=== PATIENT | female | born 1960 | race Caucasian/White ===

== ENCOUNTER 2016-09-21 12:49 | Emergency (ER) | payer OTHER ==
[~2016-09-21] VITALS: Ht 165.1 cm; Wt 77.1 kg
[2016-09-21] MEDS ORDERED: ZESTRIL20 MG PO (13:25)
[2016-09-21] MEDS ORDERED: GLUCOPHAGE500 MG PO (13:25)
[2016-09-21 13:26] VITALS: BP 154/72
--- NOTE | 2016-09-21 13:26 | NUR ---
PT AMBULATED TO BED 7 AT THIS TIME.
--- NOTE | 2016-09-21 13:30 | NUR ---
56/F BIB TO ED C/O RIGHT FOOT/ANKLE PAIN X 3 DAYS, PT. STATES A TREE BRANCH FELL ON FOOT ON SUNDAY. HX DIABETES AND HTN. STS PAIN LOCALIZED ONLY TO THE 1ST TOE. FOOT IS SWOLLEN, SKIN TAUT. CMS INTACT. XR NOTIFED FOR SCAN.
--- NOTE | 2016-09-21 14:45 | NUR ---
SPLINT APPLIED AT BEDSIDE.
[2016-09-21 15:24] VITALS: BP 150/78
--- NOTE | 2016-09-21 15:25 | NUR ---
Patient discharged with v/s stable. Written and verbal after care instructions given and explained. Patient alert, oriented and verbalized understanding of instructions. Ambulatory with CRUTCHES. All questions addressed prior to discharge. ID band removed. Patient advised to follow up with PMD. Rx of NORCO 5-325 AND MOTRIN given. Patient educated on indication of medication including possible reaction and side effects. Opportunity to ask questions provided and answered.
== END 2016-09-21 15:25 | disposition home or self-care (01) ==
LOC: MED 12:53
DX: S92.311A Displaced fracture of first metatarsal bone, right foot, initial encounter for closed fracture (principal); E11.9 Type 2 diabetes mellitus without complications; I10 Essential (primary) hypertension; X58.XXXA Exposure to other specified factors, initial encounter; Y93.89 Activity, other specified; Y92.89 Other specified places as the place of occurrence of the external cause; Y99.8 Other external cause status

== ENCOUNTER 2021-07-23 05:18 | Inpatient (IN) | payer OTHER, SELFPAY ==
[~2021-07-23] VITALS: Ht 165.1 cm; Wt 64.0 kg
[~2021-07-23 05:18] MED LIST: LISI-487 PO; METF500T PO
[2021-07-23 06:04] VITALS: BP 167/74
[2021-07-23 08:02] LABS: ANION GAP 12.7 (8-16); CARBON DIOXIDE 30.8 mmol/L (21-32); CREATININE 3.9 mg/dL (0.6-1.3); POTASSIUM 4.5 mmol/L (3.5-5.1)
[2021-07-23 08:06] LABS: BASOPHILS # (AUTO) 0.1 K/uL (0.00-0.22); EOSINOPHILS % (AUTO) 0.7 % (0.0-4.0); HEMATOCRIT 28.4 % (36-48); HEMOGLOBIN 9.8 g/dL (12.0-16.0); LYMPHOCYTES # (AUTO) 0.9 K/uL (2.5-16.5); LYMPHOCYTES % (AUTO) 15.2 % (20.5-51.1); MEAN CORPUSCULAR HEMOGLOBIN 33 pg (27-31); MEAN CORPUSCULAR HGB CONC 35 g/dL (33-37); MEAN CORPUSCULAR VOLUME 96.5 fL (80-94); MONOCYTES # (AUTO) 0.4 K/uL (0.8-1.0); MONOCYTES % (AUTO) 6.3 % (1.7-9.3); NEUTROPHILS # (AUTO) 4.5 K/uL (1.8-7.7); NEUTROPHILS % (AUTO) 76.8 % (42.2-75.2); PLATELET COUNT (AUTO) 315 K/uL (140-450); RED BLOOD CELL COUNT(AUTO) 2.94 MIL/uL (4.20-5.40); RED CELL DISTRIBUTION WIDTH 13.5 % (11.6-13.7); WHITE BLOOD COUNT (AUTO) 5.9 K/uL (4.8-10.8)
[2021-07-23] MEDS ORDERED: CLON0.2T16 PO (10:26)
[2021-07-23] MEDS ORDERED: LOSA100T1 PO (10:26)
[2021-07-23] MEDS ORDERED: HYDROcodone/APAP 5/325 MG 1 TAB TAB PO STA (10:56)
[2021-07-23] MEDS ORDERED: ONDANSETRON 4 MG ODT PO ONE (11:10)
[2021-07-23] MEDS ORDERED: ZOLPIDEM 5 MG TAB PO PRN (11:25)
[2021-07-23] MEDS ORDERED: ONDANSETRON 4 MG/2 ML VIAL IM/IVP PRN (11:25)
[2021-07-23] MEDS ORDERED: POTASSIUM CHLORIDE 10 MEQ TABER PO PRN (11:25)
[2021-07-23] MEDS ORDERED: DOCUSATE SODIUM 100 MG GELCAP PO PRN (11:25)
[2021-07-23] MEDS ORDERED: guaiFENesin DM 200/20 MG-10 ML 10 ML UDC PO PRN (11:25)
[2021-07-23] MEDS ORDERED: ACETAMINOPHEN 325 MG TAB PO PRN (11:25)
[2021-07-23] MEDS: NACL 0.9% 1,000 ML IV SCH (11:51)
[2021-07-23 13:52] LABS: CHOL/HDL RATIO 2.9 (1-4.5); FREE T4 (FREE THYROXINE) 1.25 ng/dL (0.76-1.46); MAGNESIUM 2.4 mg/dL (1.8-2.4); PROTHROMBIN TIME 9.9 secs (10.8-13.4); THYROID STIMULATING HORMONE 0.75 uIU/mL (0.34-3.74)
[2021-07-23 14:07] LABS: PHOSPHORUS 1.1 mg/dL (2.5-4.9)
[2021-07-23 14:47] LABS: APPEARANCE,URINE CLEAR (CLEAR); BILIRUBIN,URINE NEGATIVE (NEGATIVE); BLOOD, URINE NEGATIVE (NEGATIVE); COLOR,URINE YELLOW (YELLOW); LEUKOCYTE ESTERASE ,URINE NEGATIVE (NEGATIVE); NITRITE, URINE NEGATIVE (NEGATIVE); UGLUCOSE NEGATIVE (NEGATIVE)
[2021-07-23] MEDS ORDERED: SODIUM PHOS / POTASSIUM PHOS 1 PKT PDR PO SCH (15:00)
[2021-07-23 15:06] LABS: BARBITURATE, URINE NEGATIVE ng/ml (NEG <=200); BENZODIAZEPINE, URINE NEGATIVE ng/mL (NEG <=200); CANNABINOID, URINE NEGATIVE ng/mL (NEG <=50); COCAINE, URINE NEGATIVE ng/mL (NEG <=300); OPIATE, URINE NEGATIVE ng/mL (NEG <=2000); PHENCYCLIDINE SCREEN,URINE NEGATIVE ng/mL (NEG <=25)
[2021-07-23] MEDS: HYDROcodone/APAP 7.5/325 MG 1 TAB PO PRN (21:30)
[2021-07-24] MEDS: NACL 0.9% 1,000 ML IV SCH ×2 (04:29→21:10)
[2021-07-24] MEDS: HYDROcodone/APAP 7.5/325 MG 1 TAB PO PRN (08:14)
[2021-07-24] MEDS: PANTOPRAZOLE 40 MG TABEC PO SCH (08:15)
[2021-07-24 09:05] LABS: ANION GAP 14.5 (8-16); BASOPHILS # (AUTO) 0.1 K/uL (0.00-0.22); BASOPHILS % (AUTO) 0.9 % (0.0-2.0); CARBON DIOXIDE 27.8 mmol/L (21-32); EOSINOPHILS # (AUTO) 0.2 K/uL (0-0.4); EOSINOPHILS % (AUTO) 2.3 % (0.0-4.0); HEMATOCRIT 28.8 % (36-48); HEMOGLOBIN 10.1 g/dL (12.0-16.0); LYMPHOCYTES # (AUTO) 1.8 K/uL (2.5-16.5); LYMPHOCYTES % (AUTO) 24.8 % (20.5-51.1); MEAN CORPUSCULAR HEMOGLOBIN 34 pg (27-31); MEAN CORPUSCULAR HGB CONC 35 g/dL (33-37); MEAN CORPUSCULAR VOLUME 95.8 fL (80-94); MONOCYTES # (AUTO) 0.6 K/uL (0.8-1.0); MONOCYTES % (AUTO) 8.5 % (1.7-9.3); NEUTROPHILS # (AUTO) 4.5 K/uL (1.8-7.7); NEUTROPHILS % (AUTO) 63.5 % (42.2-75.2); PLATELET COUNT (AUTO) 352 K/uL (140-450); POTASSIUM 4.3 mmol/L (3.5-5.1); RED CELL DISTRIBUTION WIDTH 13.5 % (11.6-13.7); WHITE BLOOD COUNT (AUTO) 7.1 K/uL (4.8-10.8)
[2021-07-24 09:06] LABS: T4 (THYROXINE) 11.7 ug/dL (4.5-12.0)
[2021-07-24 09:41] LABS: CREATININE 4.6 mg/dL (0.6-1.3)
[2021-07-24] MEDS ORDERED: NON-FORMULARY ITEM (Clonidine HCl (Clonidine) 0.1 MG) PO SCH (16:05)
[2021-07-24] MEDS ORDERED: LOSARTAN 50 MG TAB PO SCH (16:05)
[2021-07-24] MEDS ORDERED: metFORMIN 500 MG TAB PO SCH (16:05)
[2021-07-24] MEDS ORDERED: CLONIDINE HYDROCHLORIDE 0.1 MG TAB PO SCH (16:24)
[2021-07-24] MEDS: INSULIN LISPRO SLIDING SCALE 100 UNITS/ML VIAL SUBQ PRN (17:42)
[2021-07-24] MEDS: BLOOD GLUCOSE MONITORING 1 DEV DEV FS SCH (21:11)
[2021-07-24] MEDS: CLONIDINE HYDROCHLORIDE 0.1 MG TAB PO SCH (21:13)
[2021-07-25 07:17] LABS: BASOPHILS # (AUTO) 0.1 K/uL (0.00-0.22); BASOPHILS % (AUTO) 1.4 % (0.0-2.0); EOSINOPHILS # (AUTO) 0.2 K/uL (0-0.4); EOSINOPHILS % (AUTO) 3.1 % (0.0-4.0); HEMATOCRIT 27.8 % (36-48); HEMOGLOBIN 9.7 g/dL (12.0-16.0); LYMPHOCYTES # (AUTO) 1.5 K/uL (2.5-16.5); LYMPHOCYTES % (AUTO) 24.1 % (20.5-51.1); MEAN CORPUSCULAR HEMOGLOBIN 34 pg (27-31); MEAN CORPUSCULAR HGB CONC 35 g/dL (33-37); MEAN CORPUSCULAR VOLUME 96.5 fL (80-94); MONOCYTES # (AUTO) 0.5 K/uL (0.8-1.0); MONOCYTES % (AUTO) 8.6 % (1.7-9.3); NEUTROPHILS % (AUTO) 62.8 % (42.2-75.2); PLATELET COUNT (AUTO) 341 K/uL (140-450); RED BLOOD CELL COUNT(AUTO) 2.88 MIL/uL (4.20-5.40); RED CELL DISTRIBUTION WIDTH 13.7 % (11.6-13.7); WHITE BLOOD COUNT (AUTO) 6.4 K/uL (4.8-10.8)
[2021-07-25] MEDS: BLOOD GLUCOSE MONITORING 1 DEV DEV FS SCH ×4 (07:30→21:31)
[2021-07-25 07:46] LABS: ANION GAP 12.6 (8-16); CARBON DIOXIDE 30.3 mmol/L (21-32); POTASSIUM 4.9 mmol/L (3.5-5.1)
[2021-07-25 08:03] LABS: CREATININE 5.4 mg/dL (0.6-1.3)
[2021-07-25] MEDS: CLONIDINE HYDROCHLORIDE 0.1 MG TAB PO SCH ×2 (09:27→20:17)
[2021-07-25] MEDS: PANTOPRAZOLE 40 MG TABEC PO SCH (09:27)
[2021-07-25] MEDS: HYDROcodone/APAP 7.5/325 MG 1 TAB PO PRN ×2 (09:28→20:18)
[2021-07-25] MEDS: LOSARTAN 50 MG TAB PO SCH ×3 (09:28→20:18)
[2021-07-25 10:00] VITALS: BP 190/91
[2021-07-25] MEDS: INSULIN LISPRO SLIDING SCALE 100 UNITS/ML VIAL SUBQ PRN ×2 (11:53→21:31)
[2021-07-25] MEDS: NACL 0.9% 1,000 ML IV SCH (11:53)
[2021-07-25 16:00] VITALS: BP 160/87
[2021-07-25 20:00] VITALS: BP 195/94
[2021-07-26] VITALS: BP 145/78
[2021-07-26 04:00] VITALS: BP 140/80
[2021-07-26 06:21] LABS: BASOPHILS # (AUTO) 0.1 K/uL (0.00-0.22); BASOPHILS % (AUTO) 1.2 % (0.0-2.0); EOSINOPHILS # (AUTO) 0.2 K/uL (0-0.4); EOSINOPHILS % (AUTO) 3.8 % (0.0-4.0); HEMATOCRIT 26.7 % (36-48); HEMOGLOBIN 9.2 g/dL (12.0-16.0); LYMPHOCYTES # (AUTO) 1.3 K/uL (2.5-16.5); LYMPHOCYTES % (AUTO) 23.1 % (20.5-51.1); MEAN CORPUSCULAR HEMOGLOBIN 33 pg (27-31); MEAN CORPUSCULAR HGB CONC 35 g/dL (33-37); MEAN CORPUSCULAR VOLUME 96.3 fL (80-94); MONOCYTES # (AUTO) 0.6 K/uL (0.8-1.0); MONOCYTES % (AUTO) 11.4 % (1.7-9.3); NEUTROPHILS # (AUTO) 3.4 K/uL (1.8-7.7); NEUTROPHILS % (AUTO) 60.5 % (42.2-75.2); PLATELET COUNT (AUTO) 315 K/uL (140-450); RED BLOOD CELL COUNT(AUTO) 2.77 MIL/uL (4.20-5.40); RED CELL DISTRIBUTION WIDTH 13.3 % (11.6-13.7); WHITE BLOOD COUNT (AUTO) 5.6 K/uL (4.8-10.8)
[2021-07-26 07:33] LABS: ANION GAP 13.6 (8-16); CARBON DIOXIDE 26.4 mmol/L (21-32)
[2021-07-26] MEDS: BLOOD GLUCOSE MONITORING 1 DEV DEV FS SCH ×2 (07:33→10:40)
[2021-07-26 07:34] LABS: CREATININE 4.4 mg/dL (0.6-1.3)
[2021-07-26 08:00] VITALS: BP 186/73
[2021-07-26] MEDS: PANTOPRAZOLE 40 MG TABEC PO SCH (08:40)
[2021-07-26] MEDS: LOSARTAN 50 MG TAB PO SCH (08:40)
[2021-07-26] MEDS: CLONIDINE HYDROCHLORIDE 0.1 MG TAB PO SCH (08:41)
[2021-07-26] MEDS ORDERED: NIFEdipine 30 MG TABER PO SCH (09:00)
[2021-07-26] MEDS: INSULIN LISPRO SLIDING SCALE 100 UNITS/ML VIAL SUBQ PRN (10:35)
[2021-07-26 12:00] VITALS: BP 142/64
[2021-07-26] MEDS ORDERED: CLONIDINE HYDROCHLORIDE 0.1 MG TAB PO SCH (13:00)
[2021-07-26] MEDS ORDERED: NIFE30TA36 PO (13:05)
[2021-07-26] MEDS ORDERED: CLON0.1T16 PO (13:05)
[2021-07-26 13:23] VITALS: BP 142/64
[2021-07-26 14:20] VITALS: BP 130/77
== END 2021-07-26 15:46 | disposition home health service (06) | DRG 280 ==
LOC: MED 05:18 → MTU 10:22
PROVIDERS: ADMIT Family Medicine; ATTEND Family Medicine
PROC: 5A1D70Z Performance of Urinary Filtration, Intermittent, Less than 6 Hours Per Day (ICD-10-PCS; principal; 2021-07-24)
PROC: 5A1D70Z Performance of Urinary Filtration, Intermittent, Less than 6 Hours Per Day (ICD-10-PCS; 2021-07-26)
DX: I13.2 Hypertensive heart and chronic kidney disease with heart failure and with stage 5 chronic kidney disease, or end stage renal disease (principal); J96.01 Acute respiratory failure with hypoxia; I21.A1 Myocardial infarction type 2; N17.0 Acute kidney failure with tubular necrosis; N18.6 End stage renal disease; I50.33 Acute on chronic diastolic (congestive) heart failure; I16.1 Hypertensive emergency; Z20.822 Contact with and (suspected) exposure to COVID-19; D63.8 Anemia in other chronic diseases classified elsewhere; E87.70 Fluid overload, unspecified; E11.22 Type 2 diabetes mellitus with diabetic chronic kidney disease; I27.20 Pulmonary hypertension, unspecified; Z99.2 Dependence on renal dialysis; Z90.49 Acquired absence of other specified parts of digestive tract
CPT/HCPCS: 36415; 71045; 80048; 80305; 81003; 82150; 82948; 83036; 83690; 83735; 83880; 84100; 84436; 84439; 84443; 84479; 84484; 85025; 85610; 85730; 87081; 93005; 97116; 97163-GP; 97530; 99285; J2405; Q0162

== ENCOUNTER 2022-07-17 12:51 | Emergency (ER) | payer OTHER ==
[~2022-07-17] VITALS: Ht 157.5 cm; Wt 70.3 kg
[~2022-07-17 12:51] MED LIST changes: +CLON0.1T16 PO; -LISI-487 PO; -METF500T PO; +NIFE30TA36 PO
[2022-07-17 12:56] VITALS: BP 182/92
[2022-07-17] MEDS ORDERED: KETOROLAC 15 MG/ML VIAL IM ONE (13:15)
[2022-07-17] MEDS ORDERED: CYCLOBENZAPRINE 10 MG TAB PO ONE (13:15)
[2022-07-17] MEDS ORDERED: LIDOCAINE 5% 1 EA PATCH TP ONE (13:15)
[2022-07-17] MEDS ORDERED: ACETAMINOPHEN 325 MG TAB PO ONE (13:15)
--- NOTE | 2022-07-17 13:20 | NUR ---
PATIENT PRESENTS TO ED WITH BACKPAIN . PT DEBIES TRAUMA . DENIES N/V/D; SKIN IS PINK/WARM/DRY; AAOX4 WITH EVEN AND STEADY GAIT; LUNGS CLEAR BL; HR EVEN AND REGULAR; PT DENIES ANY FEVER, CP, SOB, OR COUGH AT THIS TIME; PATIENT STATES PAIN OF 7/10 AT THIS TIME; VSS; PATIENT POSITIONED FOR COMFORT; HOB ELEVATED; BEDRAILS UP X2; BED DOWN. ER MD MADE AWARE OF PT STATUS.
[2022-07-17] MEDS ORDERED: CYCL-711 PO (14:13)
[2022-07-17] MEDS ORDERED: ACET-10509 PO (14:13)
[2022-07-17] MEDS ORDERED: LID5T TP (14:13)
[2022-07-17 14:30] VITALS: BP 155/78
--- NOTE | 2022-07-17 14:31 | NUR ---
Patient discharged with v/s stable. Written and verbal after care instructions given and explained. Patient verbalized understanding. Ambulatory with steady gait. All questions addressed prior to discharge. Advised to follow up with PMD.
== END 2022-07-17 14:30 | disposition home or self-care (01) ==
LOC: MED 12:51
DX: M54.50 Low back pain, unspecified (principal); G89.29 Other chronic pain; J45.909 Unspecified asthma, uncomplicated; E11.22 Type 2 diabetes mellitus with diabetic chronic kidney disease; I12.0 Hypertensive chronic kidney disease with stage 5 chronic kidney disease or end stage renal disease; N18.6 End stage renal disease; Z99.2 Dependence on renal dialysis; Z79.899 Other long term (current) drug therapy; Z98.890 Other specified postprocedural states
CPT/HCPCS: 72110; 96372; 99283; J1885

== ENCOUNTER 2022-07-18 21:00 | Emergency (ER) | payer OTHER ==
[~2022-07-18] VITALS: Ht 165.1 cm; Wt 61.2 kg
[~2022-07-18 21:00] MED LIST changes: +ACET-10509 PO; +CYCL-711 PO; +LID5T TP
[2022-07-18 21:15] VITALS: BP 120/61
--- NOTE | 2022-07-18 21:18 | NUR ---
TO LOBBY A/W BED AMBULATORY WITH WALKER
[2022-07-18] MEDS ORDERED: methocarbamoL 500 MG TAB PO ONE (23:00)
[2022-07-18] MEDS ORDERED: LIDOCAINE 5% 1 EA PATCH TP ONE (23:00)
--- NOTE | 2022-07-18 23:04 | NUR ---
PT TAKEN TO CT
--- NOTE | 2022-07-18 23:04 | NUR ---
Alfonzo neal in [facility] - 07/18/22 at 2304 by ANILA PT TO US
--- NOTE | 2022-07-18 23:12 | NUR ---
PT RETURN FROM CT TO ER BED 11
[2022-07-18 23:28] LABS: BASOPHILS % (AUTO) 0.9 % (0.0-2.0); EOSINOPHILS # (AUTO) 0.1 K/uL (0-0.4); EOSINOPHILS % (AUTO) 0.9 % (0.0-4.0); HEMATOCRIT 30.7 % (36-48); HEMOGLOBIN 10.7 g/dL (12.0-16.0); LYMPHOCYTES # (AUTO) 1.8 K/uL (2.5-16.5); LYMPHOCYTES % (AUTO) 31.8 % (20.5-51.1); MEAN CORPUSCULAR HEMOGLOBIN 34 pg (27-31); MEAN CORPUSCULAR HGB CONC 35 g/dL (33-37); MEAN CORPUSCULAR VOLUME 98.1 fL (80-94); MONOCYTES # (AUTO) 0.7 K/uL (0.8-1.0); NEUTROPHILS # (AUTO) 3.1 K/uL (1.8-7.7); NEUTROPHILS % (AUTO) 54.4 % (42.2-75.2); PLATELET COUNT (AUTO) 210 K/uL (140-450); RED BLOOD CELL COUNT(AUTO) 3.13 MIL/uL (4.20-5.40); RED CELL DISTRIBUTION WIDTH 12.5 % (11.6-13.7); WHITE BLOOD COUNT (AUTO) 5.7 K/uL (4.8-10.8)
[2022-07-18 23:58] LABS: ALBUMIN 3.6 g/dL (3.4-5.0); ANION GAP 11.7 (8-16); CARBON DIOXIDE 35.7 mmol/L (21-32); CREATININE 3.8 mg/dL (0.6-1.3); POTASSIUM 3.4 mmol/L (3.5-5.1); TOTAL BILIRUBIN 0.5 mg/dL (0.0-1.0)
[2022-07-19 01:11] LABS: APPEARANCE,URINE SL CLOUDY (CLEAR); BILIRUBIN,URINE NEGATIVE (NEGATIVE); BLOOD, URINE NEGATIVE (NEGATIVE); COLOR,URINE YELLOW (YELLOW); LEUKOCYTE ESTERASE ,URINE 1+ (NEGATIVE); NITRITE, URINE NEGATIVE (NEGATIVE); PH,URINE 7.5 (5.0-9.0); UGLUCOSE NEGATIVE (NEGATIVE)
--- NOTE | 2022-07-19 01:11 | NUR ---
URINE COLLECTED AND SENT TO LAB
[2022-07-19 01:17] LABS: RBC,URINE 0-5 /HPF (0-5)
[2022-07-19] MEDS ORDERED: CEPH-588 PO (01:33)
[2022-07-19 01:51] VITALS: BP 112/62
== END 2022-07-19 01:51 | disposition home or self-care (01) ==
LOC: MED 21:00
DX: M54.50 Low back pain, unspecified (principal); N39.0 Urinary tract infection, site not specified; E11.22 Type 2 diabetes mellitus with diabetic chronic kidney disease; I12.0 Hypertensive chronic kidney disease with stage 5 chronic kidney disease or end stage renal disease; N18.6 End stage renal disease; J45.909 Unspecified asthma, uncomplicated; Z99.2 Dependence on renal dialysis; Z98.890 Other specified postprocedural states; Z79.899 Other long term (current) drug therapy
CPT/HCPCS: 36415; 80053; 81001; 83690; 85025; 87086; 99284